=== PATIENT | male | born 1995 | race Caucasian/White ===

== ENCOUNTER 2023-09-16 01:42 | Emergency (ER) | payer OTHER ==
[~2023-09-16] VITALS: Ht 190.5 cm; Wt 95.3 kg
[2023-09-16 01:53] VITALS: BP_SYST 133; PULSE 100; RESP 16; TEMP 98.7; O2SAT 96
[2023-09-16 02:50] VITALS: BP_SYST 133; PULSE 100; RESP 16; TEMP 98.7; O2SAT 96
== END 2023-09-16 02:50 | disposition home or self-care (01) ==
LOC: SED 01:42
DX: R07.89 Other chest pain (principal)
CPT/HCPCS: 71045; 99283